=== PATIENT | female | born 1995 | race Caucasian/White ===

== ENCOUNTER 2025-01-24 00:47 | Emergency (ER) | payer SELFPAY ==
[~2025-01-24] VITALS: Ht 162.6 cm; Wt 66.0 kg
[2025-01-24 01:08] VITALS: TEMP 36.9; O2SAT 99
[2025-01-24 01:34] VITALS: BP 129/75; PULSE 118; RESP 20; O2SAT 98
[2025-01-24] MEDS: IBUPROFEN 600MG TABLET PO STA (02:05)
[2025-01-24 03:58] LABS: HCG SCREEN NEGATIVE
== END 2025-01-24 03:59 | disposition left against medical advice (07) ==
LOC: ER 00:47
DX: R51.9 Headache, unspecified (principal)
CPT/HCPCS: 84703; 70450; 70486; 72125; 99291; Z7610; A4606